=== PATIENT | female | born 1975 | race Caucasian/White ===

== ENCOUNTER 2020-07-04 00:04 | Emergency (ER) | payer BC, OTHER ==
[2020-07-04 00:45] VITALS: BP 132/83; PULSE 102; RESP 16; TEMP 99
--- NOTE | 2020-07-04 01:30 | XR ---
EXAM: XR Abdomen, 1 View CLINICAL HISTORY: abdominal pain TECHNIQUE: Frontal supine view of the abdomen/pelvis. COMPARISON: CT 06/17/20 FINDINGS: Gastrointestinal tract: Gas filled loops of nondilated colon. Paucity of small bowel gas. No pneumatosis. Bones/joints: No acute fracture or malalignment. IMPRESSION: Nonspecific bowel gas pattern. No pneumatosis or pneumoperitoneum.
[2020-07-04 01:51] LABS: Basophils % (A) 0 %; Eosinophils # (A) 0.2 k/uL (0-0.7); Eosinophils % (A) 1 %; HCT 40.3 % (34.0-46.0); HGB 13.5 gm/dL (11.4-16.0); Lymphocytes # (A) 1.5 k/uL (1.0-4.8); Lymphocytes % (A) 12 %; MCH 29.8 pg (25.0-35.0); MCHC 33.4 g/dL (31.0-37.0); MCV 89.1 fL (80.0-100.0); Mean Platelet Volume 7.1; Monocytes # (A) 0.4 k/uL (0-1.0); Monocytes % (A) 3 %; Neutrophils # (A) 9.8 k/uL (1.3-7.7); Neutrophils % (A) 82 %; Platelet Count 316 k/uL (150-450); RBC 4.52 m/uL (3.80-5.40); RDW 12.9 % (11.5-15.5)
[2020-07-04 02:13] LABS: ALT 32 U/L (4-34); AST 37 U/L (14-36); African American GFR (CKD) >90 (>60 ml/min/1.73 sqM); Albumin 4.7 g/dL (3.5-5.0); Alkaline Phosphatase 81 U/L (38-126); Amylase 62 U/L (30-110); Anion Gap 7 mmol/L; Blood Urea Nitrogen 17 mg/dL (7-17); Calcium 9.7 mg/dL (8.4-10.2); Carbon Dioxide 28 mmol/L (22-30); Chloride 97 mmol/L (98-107); Glucose 136 mg/dL (74-99); Lipase 69 U/L (23-300); Non-African American GFR(CKD) >90 (>60 ml/min/1.73 sqM); Potassium 3.8 mmol/L (3.5-5.1); Sodium 132 mmol/L (137-145); Total Bilirubin 0.4 mg/dL (0.2-1.3)
[2020-07-04 02:41] LABS: Amorphous Sediment,Urine Rare /hpf; Appearance,Urine Cloudy (Clear); Bacteria,Urine Rare /hpf; Bilirubin,Urine Negative (Negative); Blood,Urine Large (Negative); Color,Urine Yellow; Glucose,Urine (UA) Negative (Negative); Ketones,Urine Trace (Negative); Leukocyte Esterase,Urine Negative (Negative); Mucus,Urine Many /hpf; Nitrite,Urine Negative (Negative); PH, Urine 5.5 (5.0-8.0); Protein,Urine Trace (Negative); RBC,Urine 67 /hpf (0-5); Specific Gravity,Urine 1.031 (1.001-1.035); Squamous Epithelial Cell,Urine 2 /hpf (0-4); Urobilinogen,Urine <2.0 mg/dL (<2.0); WBC,Urine 2 /hpf (0-5)
--- NOTE | 2020-07-04 02:58 | ED ---
Recheck HPI - General Chief Complaint: Abdominal Pain Stated Complaint: Nausea, headache Time Seen by Provider: 07/04/20 02:48 Source: patient, RN notes reviewed, old records reviewed Mode of arrival: ambulatory Limitations: no limitations - History of Present Illness Initial Comments: This is a 44-year-old female DF for evaluation. Patient comes in for multiple nonspecific complaints around abdominal pain some nausea some bowel or bladder issues. Patient states she is finishing her period. No prior history of control. No medical history takes no medications no surgical history. Patient was called at home by certified mail in regards to having some sort of tumor in her liver which is very concerned and presents her to the ER today. Otherwise no nausea vomiting diarrhea or abdominal pain MD Complaint: abnormal lab (Computed tomography scan showing liver mass) -: week(s) Returns Today for: persistent/worsening pain related to initial visit (Anxiety causing pain) Symptoms Since Prior Visit: worsening pain Associated Symptoms: none Treatments Prior to Arrival: other (none) - Related Data Allergies Allergy/AdvReac Type Severity Reaction Status Date / Time No Known Allergies Allergy Verified 07/04/20 00:41 Review of Systems ROS Statement: Those systems with pertinent positive or pertinent negative responses have been documented in the HPI. ROS Other: All systems not noted in ROS Statement are negative. Past Medical History Past Medical History: No Reported History History of Any Multi-Drug Resistant Organisms: None Reported Past Surgical History: No Surgical Hx Reported Past Psychological History: No Psychological Hx Reported Smoking Status: Never smoker Past Alcohol Use History: None Reported Past Drug Use History: None Reported General Exam Limitations: no limitations General appearance: alert, in no apparent distress, anxious Head exam: Present: atraumatic, normocephalic, normal inspection Eye exam: Present: normal appearance, PERRL, EOMI. Absent: scleral icterus, conjunctival injection, periorbital swelling ENT exam: Present: normal exam, mucous membranes moist Neck exam: Present: normal inspection. Absent: tenderness, meningismus, lymphadenopathy Respiratory exam: Present: normal lung sounds bilaterally. Absent: respiratory distress, wheezes, rales, rhonchi, stridor Cardiovascular Exam: Present: regular rate, normal rhythm, normal heart sounds. Absent: systolic murmur, diastolic murmur, rubs, gallop, clicks GI/Abdominal exam: Present: soft, normal bowel sounds. Absent: distended, tenderness, guarding, rebound, rigid Extremities exam: Present: normal inspection, full ROM, normal capillary refill. Absent: tenderness, pedal edema, joint swelling, calf tenderness Back exam: Present: normal inspection Neurological exam: Present: alert, oriented X3, CN II-XII intact Psychiatric exam: Present: normal affect, normal mood Skin exam: Present: warm, dry, intact, normal color. Absent: rash Course Vital Signs 07/04/20 00:41 Temperature 99.0 F Pulse Rate 102 H Respiratory 16 Rate Blood Pressure 132/83 O2 Sat by Pulse 98 Oximetry - Reevaluation(s) Reevaluation #1: 07/04/20 03:44 Medical record is reviewed Reevaluation #2: 07/04/20 03:44 Patient informed of results, neuro conversation regarding findings, questions answered Reevaluation #3: 07/04/20 03:44 Patient reassured at benign nature of tumor Medical Decision Making - Medical Decision Making 44 female of nonspecific abdominal pain recheck for prior evaluation she was so benign nodular hyperplasia. Patient can be discharged home to follow-up with primary care in the future - Lab Data Result diagrams: 07/04/20 01:00 07/04/20 01:00 Lab Results 07/04/20 07/04/20 07/04/20 Range/Units 01:00 01:00 01:00 WBC 12.0 H (3.8-10.6) k/uL RBC 4.52 (3.80-5.40) m/uL Hgb 13.5 (11.4-16.0) gm/dL Hct 40.3 (34.0-46.0) % MCV 89.1 (80.0-100.0) fL MCH 29.8 (25.0-35.0) pg MCHC 33.4 (31.0-37.0) g/dL RDW 12.9 (11.5-15.5) % Plt Count 316 (150-450) k/uL MPV 7.1 Neutrophils % 82 % Lymphocytes % 12 % Monocytes % 3 % Eosinophils % 1 % Basophils % 0 % Neutrophils # 9.8 H (1.3-7.7) k/uL Lymphocytes # 1.5 (1.0-4.8) k/uL Monocytes # 0.4 (0-1.0) k/uL Eosinophils # 0.2 (0-0.7) k/uL Basophils # 0.0 (0-0.2) k/uL Sodium 132 L (137-145) mmol/L Potassium 3.8 (3.5-5.1) mmol/L Chloride 97 L (98-107) mmol/L Carbon Dioxide 28 (22-30) mmol/L Anion Gap 7 mmol/L BUN 17 (7-17) mg/dL Creatinine 0.60 (0.52-1.04) mg/dL Est GFR (CKD-EPI)AfAm >90 (>60 ml/min/1.73 sqM) Est GFR (CKD-EPI)NonAf >90 (>60 ml/min/1.73 sqM) Glucose 136 H (74-99) mg/dL Plasma Lactic Acid Sascha (0.7-2.0) mmol/L Calcium 9.7 (8.4-10.2) mg/dL Total Bilirubin 0.4 (0.2-1.3) mg/dL AST 37 H (14-36) U/L ALT 32 (4-34) U/L Alkaline Phosphatase 81 (38-126) U/L Total Protein 8.0 (6.3-8.2) g/dL Albumin 4.7 (3.5-5.0) g/dL Amylase 62 (30-110) U/L Lipase 69 (23-300) U/L Urine Color Yellow Urine Appearance Cloudy H (Clear) Urine pH 5.5 (5.0-8.0) Ur Specific Em[place] 1.031 (1.001-1.035) Urine Protein Trace H (Negative) Urine Glucose (UA) Negative (Negative) Urine Ketones Trace H (Negative) Urine Blood Large H (Negative) Urine Nitrite Negative (Negative) Urine Bilirubin Negative (Negative) Urine Urobilinogen <2.0 (<2.0) mg/dL Ur Leukocyte Esterase Negative (Negative) Urine RBC 67 H (0-5) /hpf Urine WBC 2 (0-5) /hpf Ur Squamous Epith Cells 2 (0-4) /hpf Amorphous Sediment Rare H (None) /hpf Urine Bacteria Rare H (None) /hpf Urine Mucus Many H (None) /hpf 07/04/20 Range/Units 01:00 WBC (3.8-10.6) k/uL RBC (3.80-5.40) m/uL Hgb (11.4-16.0) gm/dL Hct (34.0-46.0) % MCV (80.0-100.0) fL MCH (25.0-35.0) pg MCHC (31.0-37.0) g/dL RDW (11.5-15.5) % Plt Count (150-450) k/uL MPV Neutrophils % % Lymphocytes % % Monocytes % % Eosinophils % % Basophils % % Neutrophils # (1.3-7.7) k/uL Lymphocytes # (1.0-4.8) k/uL Monocytes # (0-1.0) k/uL Eosinophils # (0-0.7) k/uL Basophils # (0-0.2) k/uL Sodium (137-145) mmol/L Potassium (3.5-5.1) mmol/L Chloride (98-107) mmol/L Carbon Dioxide (22-30) mmol/L Anion Gap mmol/L BUN (7-17) mg/dL Creatinine (0.52-1.04) mg/dL Est GFR (CKD-EPI)AfAm (>60 ml/min/1.73 sqM) Est GFR (CKD-EPI)NonAf (>60 ml/min/1.73 sqM) Glucose (74-99) mg/dL Plasma Lactic Acid S[place]cha 1.0 (0.7-2.0) mmol/L Calcium (8.4-10.2) mg/dL Total Bilirubin (0.2-1.3) mg/dL AST (14-36) U/L ALT (4-34) U/L Alkaline Phosphatase (38-126) U/L Total Protein (6.3-8.2) g/dL Albumin (3.5-5.0) g/dL Amylase (30-110) U/L Lipase (23-300) U/L Urine Color Urine Appearance (Clear) Urine pH (5.0-8.0) Ur Specific Emblem (1.001-1.035) Urine Protein (Negative) Urine Glucose (UA) (Negative) Urine Ketones (Negative) Urine Blood (Negative) Urine Nitrite (Negative) Urine Bilirubin (Negative) Urine Urobilinogen (<2.0) mg/dL Ur Leukocyte Esterase (Negative) Urine RBC (0-5) /hpf Urine WBC (0-5) /hpf Ur Squamous Epith Cells (0-4) /hpf Amorphous Sediment (None) /hpf Urine Bacteria (None) /hpf Urine Mucus (None) /hpf - Radiology Data Radiology results: report reviewed (X-ray KUB is negative for acute disease), image reviewed Disposition Clinical Impression: Hepatic adenoma Disposition: HOME SELF-CARE Condition: Good Instructions (If sedation given, give patient instructions): Abdominal Pain (ED) Is patient prescribed a controlled substance at d/c from ED?: No Referrals: None,Stated [Primary Care Provider] - 1-2 days
== END 2020-07-04 03:57 | disposition home or self-care (01) ==
LOC: MERGE 00:04 → EC 00:04
DX: D13.4 Benign neoplasm of liver (principal); R51.9 Headache, unspecified
CPT/HCPCS: 36415; 74018; 80053; 81001; 82150; 83605; 83690; 85025; 99283

== ENCOUNTER → 2020-07-21 | Outpatient (CLI) | payer BC ==
--- NOTE | 2020-07-21 11:29 | MR ---
MR abdomen with and without contrast HISTORY: K 76.9, liver lesion Multiplanar multisequence imaging through the abdomen and following 7.5 cc Gadavist IV correlated to CT dated 06/17/2020 The hypodense focus within the left lobe of the liver seen on prior CT is again noted and shows T1 in termediate signal, T2 bright with a nodular contour and measures approximately 3.9 cm. There is nodul ar progressive centripetal enhancement following contrast administration. Multiple additional T2 brig ht foci are scattered within the liver, at least 12 additional lesions with similar characteristics t hat are all smaller in size. There is no dilated intra or extrahepatic biliary ducts. There is no juaquin dent adenopathy. Aorta shows normal caliber. The pancreas, kidneys, adrenal glands, spleen, gallbladder are within normal limits. Lung bases show no pleural effusion. IMPRESSION: Findings consistent with hemangiomas within the liver.
== END | disposition home or self-care (01) ==
LOC: RADMRIMAIN 08:29
PROVIDERS: ATTEND Family Medicine
DX: K76.9 Liver disease, unspecified (principal)
CPT/HCPCS: 74183; A9585

== ENCOUNTER 2020-11-05 19:51 | Emergency (ER) | payer OTHER ==
[2020-11-05 20:11] VITALS: RESP 20
[2020-11-05] MEDS ORDERED: SODIUM CHLORIDE 0.9% 1,000 ML IV ONE (20:48)
[2020-11-05 21:07] LABS: Basophils % (A) 1 %; Eosinophils # (A) 0.2 k/uL (0-0.7); Eosinophils % (A) 2 %; HCT 41.7 % (34.0-46.0); Lymphocytes # (A) 1.8 k/uL (1.0-4.8); Lymphocytes % (A) 21 %; MCH 30.9 pg (25.0-35.0); MCHC 33.7 g/dL (31.0-37.0); MCV 91.6 fL (80.0-100.0); Mean Platelet Volume 7.3; Monocytes # (A) 0.3 k/uL (0-1.0); Monocytes % (A) 3 %; Neutrophils # (A) 6.1 k/uL (1.3-7.7); Neutrophils % (A) 71 %; Platelet Count 335 k/uL (150-450); RBC 4.55 m/uL (3.80-5.40); RDW 13.8 % (11.5-15.5); WBC 8.6 k/uL (3.8-10.6)
[2020-11-05 21:25] LABS: Appearance,Urine Clear (Clear); Bacteria,Urine Rare /hpf; Bilirubin,Urine Negative (Negative); Blood,Urine Moderate (Negative); Color,Urine Colorless; Glucose,Urine (UA) Negative (Negative); Ketones,Urine Negative (Negative); Leukocyte Esterase,Urine Negative (Negative); Mucus,Urine Rare /hpf; Nitrite,Urine Negative (Negative); Protein,Urine Negative (Negative); RBC,Urine <1 /hpf (0-5); Specific Gravity,Urine 1.002 (1.001-1.035); Squamous Epithelial Cell,Urine <1 /hpf (0-4); Urobilinogen,Urine <2.0 mg/dL (<2.0)
[2020-11-05 21:26] LABS: ALT 23 U/L (4-34); AST 32 U/L (14-36); African American GFR (CKD) >90 (>60 ml/min/1.73 sqM); Albumin 4.8 g/dL (3.5-5.0); Alkaline Phosphatase 90 U/L (38-126); Anion Gap 10 mmol/L; Blood Urea Nitrogen 12 mg/dL (7-17); Calcium 10.1 mg/dL (8.4-10.2); Carbon Dioxide 26 mmol/L (22-30); Chloride 101 mmol/L (98-107); Glucose 99 mg/dL (74-99); Non-African American GFR(CKD) >90 (>60 ml/min/1.73 sqM); Potassium 4.1 mmol/L (3.5-5.1); Sodium 137 mmol/L (137-145); Total Bilirubin 0.3 mg/dL (0.2-1.3); Total Protein 7.8 g/dL (6.3-8.2)
--- NOTE | 2020-11-05 21:43 | US ---
EXAMINATION TYPE: US transvaginal DATE OF EXAM: 11/05/2020 COMPARISON: NONE CLINICAL HISTORY: abnormal bleeding; pelvic cramping. abnormal bleeding TECHNIQUE: Transvaginal (TV). EXAM MEASUREMENTS: Uterus: 8.1 x 3.8 x 5.2 cm Endometrial Stripe: .3 cm Right Ovary: 2.1 x 1.4 x 1.4 cm 1. Uterus: Anteverted wnl 2. Endometrium: wnl 3. Right Ovary: wnl 4. Left Ovary: Obscured by overlying bowel gas Spectral, color and waveform doppler imaging shows good arterial and venous flow within the right o vary; there is no evidence for ovarian torsion. 5. Bilateral Adnexa: wnl 6. Posterior cul-de-sac: wnl IMPRESSION: Negative transvaginal pelvic sonogram. No adnexal mass or free fluid. No evidence of ovarian torsion. Normal endometrium.
[2020-11-05 21:50] LABS: HCG,Quantitative Serum <2.4 mIU/mL
--- NOTE | 2020-11-05 21:56 | ED ---
General Adult HPI - General Chief complaint: Vaginal Bleeding Stated complaint: vaginal bleeding Time Seen by Provider: 11/05/20 20:24 Source: patient Mode of arrival: ambulatory Limitations: no limitations - History of Present Illness Initial comments: 45-year-old female patient presents to the emergency department today for evaluation due to having an abnormal period. Patient states that her period started 4 days early this month. States the bleeding lasted for 7 days which is unusual for her. States that she did have some passage of "tissue" which she had in the past. States she did take a home test which was negative. Patient states her last gynecologic exam was last month and everything was "normal". Patient states that her periods are generally right on schedule and only last 4 days. States bleeding was heavier as well. She reports lower abdominal cramping. Denies back pain. Denies any dizziness or weakness. Does not take control. Patient denies any recent rash, fever, chills, cough, shortness of breath, chest pain, nausea, vomiting, diarrhea, constipation, back pain, numbness, tingling, dizziness, weakness, hematuria, dysuria, urinary urgency, urinary frequency, headache, visual changes, or any other complaints. - Related Data Home Medications Medication Instructions Recorded Confirmed Pnv,Calcium 72/Iron/Folic Acid 1 tab PO DAILY 03/28/15 04/02/15 [ Plus Tablet] Allergies Allergy/AdvReac Type Severity Reaction Status Date / Time No Known Allergies Allergy Verified 11/05/20 20:10 Review of Systems ROS Statement: Those systems with pertinent positive or pertinent negative responses have been documented in the HPI. ROS Other: All systems not noted in ROS Statement are negative. Past Medical History Past Medical History: No Reported History Additional Past Medical History / Comment(s): constipation History of Any Multi-Drug Resistant Organisms: None Reported Past Surgical History: No Surgical Hx Reported Past Anesthesia/Blood Transfusion Reactions: No Reported Reaction Past Psychological History: No Psychological Hx Reported Smoking Status: Never smoker Past Alcohol Use History: None Reported Past Drug Use History: None Reported - Past Family History Father Family Medical History: Cancer General Exam Limitations: no limitations General appearance: alert, in no apparent distress, other (This is a well- developed, well-nourished adult female patient in no acute distress. Vital signs upon presentation are temperature 99.6F, pulse 110, respirations 20, blood pressure 135/94, pulse ox 98% on room air.) Eye exam: Present: normal appearance, PERRL, EOMI. Absent: scleral icterus, conjunctival injection, periorbital swelling ENT exam: Present: normal exam, normal oropharynx, mucous membranes moist Respiratory exam: Present: normal lung sounds bilaterally. Absent: respiratory distress, wheezes, rales, rhonchi, stridor Cardiovascular Exam: Present: regular rate, normal rhythm, normal heart sounds. Absent: systolic murmur, diastolic murmur, rubs, gallop, clicks GI/Abdominal exam: Present: soft, normal bowel sounds. Absent: distended, tenderness, guarding, rebound, rigid Neurological exam: Present: alert, oriented X3, CN II-XII intact Psychiatric exam: Present: normal affect, normal mood Skin exam: Present: warm, dry, intact, normal color. Absent: rash Course Vital Signs 11/05/20 11/05/20 11/05/20 20:06 21:10 21:47 Temperature 99.6 F Pulse Rate 110 H 88 85 Respiratory 20 20 20 Rate Blood Pressure 135/94 118/86 109/74 O2 Sat by Pulse 98 97 99 Oximetry 11/05/20 22:15 Temperature 98.1 F Pulse Rate 74 Respiratory 20 Rate Blood Pressure 114/75 O2 Sat by Pulse 98 Oximetry Medical Decision Making - Medical Decision Making 45-year-old female patient presented to the emergency department today due to having an abnormal period. Physical examination was unremarkable. Labs reviewed and are unremarkable. HCG Quant was negative. Ultrasound was obtained and was negative. I did discuss findings and results with her. She'll be discharged with her primary care physician for recheck in 1-2 days. Return parameters were discussed in detail. She verbalizes understanding and agrees with this plan. My attending is Dr. Muller. - Lab Data Result diagrams: 11/05/20 20:54 11/05/20 20:54 Lab Results 11/05/20 11/05/20 11/05/20 Range/Units 20:54 20:54 20:54 WBC 8.6 (3.8-10.6) k/uL RBC 4.55 (3.80-5.40) m/uL Hgb 14.0 (11.4-16.0) gm/dL Hct 41.7 (34.0-46.0) % MCV 91.6 (80.0-100.0) fL MCH 30.9 (25.0-35.0) pg MCHC 33.7 (31.0-37.0) g/dL RDW 13.8 (11.5-15.5) % Plt Count 335 (150-450) k/uL MPV 7.3 Neutrophils % 71 % Lymphocytes % 21 % Monocytes % 3 % Eosinophils % 2 % Basophils % 1 % Neutrophils # 6.1 (1.3-7.7) k/uL Lymphocytes # 1.8 (1.0-4.8) k/uL Monocytes # 0.3 (0-1.0) k/uL Eosinophils # 0.2 (0-0.7) k/uL Basophils # 0.0 (0-0.2) k/uL Sodium 137 (137-145) mmol/L Potassium 4.1 (3.5-5.1) mmol/L Chloride 101 (98-107) mmol/L Carbon Dioxide 26 (22-30) mmol/L Anion Gap 10 mmol/L BUN 12 (7-17) mg/dL Creatinine 0.61 (0.52-1.04) mg/dL Est GFR (CKD-EPI)AfAm >90 (>60 ml/min/1.73 sqM) Est GFR (CKD-EPI)NonAf >90 (>60 ml/min/1.73 sqM) Glucose 99 (74-99) mg/dL Calcium 10.1 (8.4-10.2) mg/dL Total Bilirubin 0.3 (0.2-1.3) mg/dL AST 32 (14-36) U/L ALT 23 (4-34) U/L Alkaline Phosphatase 90 (38-126) U/L Total Protein 7.8 (6.3-8.2) g/dL Albumin 4.8 (3.5-5.0) g/dL HCG, Quant <2.4 mIU/mL Urine Color Colorless Urine Appearance Clear (Clear) Urine pH 6.0 (5.0-8.0) Ur Specific [place] 1.002 (1.001-1.035) Urine Protein Negative (Negative) Urine Glucose (UA) Negative (Negative) Urine Ketones Negative (Negative) Urine Blood Moderate H (Negative) Urine Nitrite Negative (Negative) Urine Bilirubin Negative (Negative) Urine Urobilinogen <2.0 (<2.0) mg/dL Ur Leukocyte Esterase Negative (Negative) Urine RBC <1 (0-5) /hpf Ur Squamous Epith Cells <1 (0-4) /hpf Urine Bacteria Rare H (None) /hpf Urine Mucus Rare H (None) /hpf Disposition Clinical Impression: Dysfunctional uterine bleeding Disposition: HOME SELF-CARE Condition: Good Instructions (If sedation given, give patient instructions): Dysfunctional Uterine Bleeding (ED) Additional Instructions: Follow-up with her primary care physician or discharge specialist for further evaluation as soon as possible. Return to the emergency department for any new, worsening, or concerning symptoms. Is patient prescribed a controlled substance at d/c from ED?: No Referrals: Andrez Piña MD [Primary Care Provider] - 1-2 days Time of Disposition: 21:56
[2020-11-05 22:16] VITALS: BP 114/75; PULSE 74; TEMP 98.1
== END 2020-11-05 22:16 | disposition home or self-care (01) ==
LOC: EC 19:51
DX: N93.8 Other specified abnormal uterine and vaginal bleeding (principal)
CPT/HCPCS: 36415; 76830; 80053; 81001; 84702; 85025; 93976; 96360; 99284